=== PATIENT | male | born 1995 | race Caucasian/White ===

== ENCOUNTER → 2017-07-10 | Outpatient (CLI) | payer OTHER ==
--- NOTE | 2017-07-10 10:46 | KCIC ---
Two-view left clavicle dated 07/10/2017. No comparison available. Clinical indication: History of clavicle fracture. Evaluate for healing. FINDINGS: 2 views left clavicle show deformity at the distal one third shaft of left clavicle. There is a small radiolucent line at the midshaft that persists. No displacement. Osseous structures otherwise unremarkable. IMPRESSION: Incompletely united fracture at the distal one third shaft left clavicle. Electronically signed by: Miguel Armijo MD (07/10/2017 10:43 AM) [id number]
== END | disposition home or self-care (01) ==
LOC: KCIC 10:14
PROVIDERS: ATTEND Family Medicine
DX: S42.022D Displaced fracture of shaft of left clavicle, subsequent encounter for fracture with routine healing (principal); Z87.81 Personal history of (healed) traumatic fracture; X58.XXXD Exposure to other specified factors, subsequent encounter
CPT/HCPCS: 73000